=== PATIENT | male | born 1975 | race Caucasian/White ===

== ENCOUNTER → 2017-11-22 | Day surgery (SDC) | payer OTHER ==
[~2017-11-22] MED LIST: FENTANYL CITRATE/PF 100MCG/2 ML INJ ONE; HYDROCHLOROTHIA25 MG PO; HYOSCYAMINE SULFATE 0.5 MG/ML AMP ONE; IBUPROFEN400 MG PO; KETAMINE HCL INJ 50 MG/ML 10 ML VIAL ONE; LIDOCAINE HCL 2% LOCAL INJ 5 ML SDV VIAL INJ ONE; MIDAZOLAM HCL 2 MG/2 ML VIAL ONE; PROPOFOL IV EMULSION 10 MG/ML 50 ML VIAL ONE
--- NOTE | 2017-11-22 21:32 | Operative Report ---
DATE OF PROCEDURE: November 22, 2017 PROCEDURE PERFORMED: Esophagogastroduodenoscopy with biopsies and colonoscopy with polypectomy and biopsies. REFERRING PHYSICIAN: Dr. Keanu Valenzuela INDICATIONS FOR EGD: Bloating, early satiety. INDICATIONS FOR COLONOSCOPY: Lower abdominal pain, new-onset constipation. MEDICATION: Patient was done under MAC. Please see anesthesiologist note. PROCEDURE IN DETAIL: With the patient in left lateral decubitus position, the flexible fiberoptic Olympus gastroscope was introduced into the esophagus under direct visualization without any difficulty. There was some patchy erythema noted in distal esophagus. The scope was then advanced with ease into his stomach traversing a small hiatal hernia. Mucosa overlying the antrum and the body revealed some patchy erythema and mild to moderate edema, and biopsies were obtained and sent to stain for H. pylori. Pylorus appeared to be of normal contour and shape. It was intubated with ease and the scope was advanced all the way to the second portion of the duodenum. The scope was then withdrawn slowly. Mucosa overlying the proximal second portion appeared to be within normal limits. There was an approximately 8-mm sessile lesion right at the junction of the bulb and the second portion, and biopsies were obtained. The scope was then withdrawn back into the stomach and retroflexed, and the mucosa overlying the fundus and the cardia appeared to be within normal limits. The scope was then straightened out. The stomach was decompressed. The scope was subsequently withdrawn. Patient tolerated the procedure well. IMPRESSION: 1. Distal esophagitis. 2. Small hiatal hernia. 3. Gastritis, biopsied. Biopsies sent to stain for Helicobacter pylori. 4. Approximately 8-mm sessile lesion at the junction of the bulb and the second portion of the duodenum, biopsied. PLAN: Follow up histology. Initiate Protonix 40 mg 1 p.o. q.a.m. a.c. Patient was then turned around, and after adequate lubrication of the anal canal, flexible fiberoptic Olympus colonoscope was inserted into the rectum with ease and advanced all the way to the cecum. It was then withdrawn slowly. Mucosa overlying the cecum and ascending colon appeared to be within normal limits. One polyp was hot biopsied from the transverse colon, 2 polyps were hot biopsied from the descending colon. The sigmoid grossly appeared to be within normal limits. There was some diffuse erythema and low-grade edema noted in the rectum and biopsies were obtained. The scope was then retroflexed into the distal rectum, and small internal hemorrhoids were noted, none of which was actively bleeding. The scope was then straightened out. The scope was subsequently withdrawn. Patient tolerated the procedure well. IMPRESSION: 1. Transverse colon polyp, hot biopsied. 2. Descending colon polyps x2, hot biopsied. 3. Proctitis, mild. 4. Internal hemorrhoids, none actively bleeding. PLAN: Follow up histology. Initiate VSL#3 DS 1 p.o. b.i.d. Job#: [id number] cc:KEANU VALENZUELA MD
== END | disposition home or self-care (01) ==
LOC: OR 11:20
PROVIDERS: ATTEND Internal Medicine Gastroenterology
DX: R10.30 Lower abdominal pain, unspecified (principal); K29.50 Unspecified chronic gastritis without bleeding; B96.81 Helicobacter pylori [H. pylori] as the cause of diseases classified elsewhere; K20.9 Esophagitis, unspecified; K44.9 Diaphragmatic hernia without obstruction or gangrene; K31.9 Disease of stomach and duodenum, unspecified; K59.00 Constipation, unspecified; R14.0 Abdominal distension (gaseous); D12.4 Benign neoplasm of descending colon; K63.5 Polyp of colon; K64.8 Other hemorrhoids; K62.89 Other specified diseases of anus and rectum; Q40.2 Other specified congenital malformations of stomach; I10 Essential (primary) hypertension; E78.5 Hyperlipidemia, unspecified; Z01.810 Encounter for preprocedural cardiovascular examination; Z01.812 Encounter for preprocedural laboratory examination
CPT/HCPCS: 36415; 43239; 45380; 45384; 84443; 93005; J1980; J2001; J2250; 45378